=== PATIENT | male | born 1990 | race Caucasian/White ===

== ENCOUNTER 2019-05-09 06:12 | Emergency (ER) | payer BC, OTHER ==
--- NOTE | 2019-05-09 06:30 | ERPHSYRPT ---
- History of Present Illness Time Seen by Provider: 05/09/19 06:20 Source: patient Exam Limitations: no limitations Patient Subjective Stated Complaint: pt states he has pain in his lt ear since yesterday and difficutly hearing. states pain is worse with swallowing. Triage Nursing Assessment: pt alert and oriented, answers questions approp. pt ambulatory with steady gait noted. respirations nonlabored with lungs cta. no drainage or redness noted from ears. Physician History: Pain has had left ear pain and decreased hearing for the past two days. Patient denies any allergies, recent URIs, swimming/scuba diving or any recent airplane travel. Patient has not tried anything to help relieve his symptoms and patient has not been evaluated or treated by anyone prior to coming into the emergency department. Timing/Duration: abrupt onset Severity: moderate ENT Location: ear (L) Prearrival Treatment: no prearrival treatment Modifying Factors: Worsens With: other (swallowing) Associated Symptoms: ear pain (R), change in hearing, No ear pain (L), No cough , No fever, No chills, No dizziness, No drooling, No ear drainage, No facial pain/swelling, No headache, No hearing loss, No jaw pain, No malaise, No motion sickness, No nasal congestion/drainage, No epistaxis, No nasal foreign body, No neck pain, No poor fluid intake, No poor solids intake, No ringing of ears, No swollen glands, No sinus infection, No sore throat, No tooth pain, No difficulty swallowing, No voice change Allergies/Adverse Reactions: azithromycin [From Zithromax] Allergy (Verified 05/09/19 06:29) Difficulty Breathing Hx Tetanus, Diphtheria Vaccination/Date Given: Yes Hx Influenza Vaccination/Date Given: No Hx Pneumococcal Vaccination/Date Given: No Immunizations Up to Date: Yes - Review of Systems Constitutional: No Fever, No Chills, No Fatigue Eyes: No Discharge, No Eye Pain, No Vision Changes Ears, Nose, & Throat: Ear Pain, Hearing Changes, No Ear Discharge, No Tinnitus, No Nose Pain, No Nose Congestion, No Mouth Pain, No Mouth Swelling, No Stridor Respiratory: No Cough, No Dyspnea Cardiac: No Chest Pain, No Edema, No Syncope Abdominal/Gastrointestinal: No Abdominal Pain, No Nausea, No Vomiting, No Diarrhea Genitourinary Symptoms: No Dysuria Musculoskeletal: No Back Pain, No Neck Pain Skin: No Rash Neurological: No Dizziness, No Focal Weakness, No Headache, No Parasthesia, No Sensory Changes, No Tremors, No Vertigo Psychological: No Emotional Lability Endocrine: No Excessive Sweating Hematologic/Lymphatic: No Easy Bleeding, No Easy Bruising All Other Systems: Reviewed and Negative - Past Medical History Pertinent Past Medical History: No - Past Surgical History Past Surgical History: No - Social History Smoking Status: Former smoker Exposure to second hand smoke: Yes Drug Use: none Patient Lives Alone: No - Nursing Vital Signs Nursing Vital Signs: Initial Vital Signs Temperature 97.9 F 05/09/19 06:18 Pulse Rate 99 H 05/09/19 06:18 Respiratory Rate 18 05/09/19 06:18 Blood Pressure 148/88 05/09/19 06:18 O2 Sat by Pulse Oximetry 96 05/09/19 06:18 Pain Scale Pain Intensity 6 - Physical Exam General Appearance: no apparent distress, alert Eye Exam: bilateral eye: normal inspection, PERRL, EOMI Ear Exam: right ear: foreign body (cerumen impaction ), bilateral ear: auricle normal Nasal Exam: normal inspection, No active bleeding Throat Exam: normal, pharynx normal, moist mucus membranes, No dental tenderness , No excessive drooling, No tonsillar exudate Neck Exam: normal inspection, non-tender, supple, trachea midline Cardiovascular/Respiratory Exam: normal breath sounds, regular rate/rhythm, heart sounds normal, no JVD, no M/R/G, no respiratory distress Abdominal Exam: non-tender, soft Neurologic Exam: alert, oriented x 3, cooperative, photo producer II-XII nml as tested, normal mood/affect, sensation nml, No motor deficits Skin Exam: normal color, warm, dry SpO2 Interpretation: normal SpO2: 96 O2 Delivery: Room Air - Course Nursing assessment & vital signs reviewed: Yes Ordered Tests: Active Orders 24 hr Category Date Time Status Ear Irrigation STAT Care 05/09/19 06:26 Active Medication Summary Discontinued Medications Generic Name Dose Route Start Last Admin Trade Name Freq PRN Reason Stop Dose Admin Hydrogen Peroxide Confirm 05/09/19 06:32 Peroxide 3% Administered 05/09/19 06:33 Dose 237 ml .ROUTE .[facility] - Progress Progress: unchanged Progress Note: 05/09/19 07:00 No success removing the bulk of the hard cerumen from the right external auditory canal with irrigation and using a plastic currette Counseled pt/family regarding: diagnosis, need for follow-up - Departure Departure Disposition: Home Clinical Impression: Hearing loss of right ear due to cerumen impaction, Elevated blood pressure reading without diagnosis of hypertension External otitis of right ear Qualifiers: Otitis externa type: unspecified type Chronicity: acute Qualified Code(s): H60.501 - Unspecified acute noninfective otitis externa, right ear Condition: Good Critical Care Time: No Referrals: DOCTOR,NO FAMILY [Primary Care Provider] - RADHA DODGE [NON-STAFF PHY W/O PRIVILEGES] - 05/09/19 (ENT specialist for your reference) Instructions: Ear Wax Impaction (DC) Additional Instructions: Follow-up with ENT specialist if no success using the Debrox drops and irrigation at home. Return if any worse symptoms at any time Prescriptions: Carbamide Peroxide [Debrox] 15 ml OT DAILY PRN #1 bottle PRN Reason: earwax Jerry/Baci/Poly/Hc Ear Solution* [CORTISPORIN EAR DROPS Solution 1OML] 4 drops OT QID 10 Days #1 bottle
[2019-05-09] MEDS ORDERED: PEROXIDE 3% ONE (06:32)
[2019-05-09 07:22] VITALS: BP 128/70; PULSE 89; O2SAT 94
== END 2019-05-09 07:27 | disposition home or self-care (01) ==
LOC: ED 06:12
DX: H61.21 Impacted cerumen, right ear (principal); R03.0 Elevated blood-pressure reading, without diagnosis of hypertension
CPT/HCPCS: 99283; A9270-GY